=== PATIENT | female | born 2000 | race African-American/Black ===

== ENCOUNTER 2022-11-07 14:51 | Observation (INO) | payer OTHER, SELFPAY ==
[2022-11-07 15:19] VITALS: BMI 30.9
--- NOTE | 2022-11-07 15:21 | OBADM ---
This patient, Jake Carpio, admitted to the OB room OB Post 116 for observation. Patient/family oriented to hospital policies and general routines including ID bracelet, bed and alarms, visiting hours, pain management, procedures, bathroom and other care routines, personal items, smoking policy, room service/diet, and visiting hours. Patient/Family are encouraged to report perceived risks to care and to ask questions if they do not understand what they are told or what they should do.
[2022-11-07 15:30] VITALS: BP 122/71; PULSE 90
[2022-11-07 15:39] LABS: Appearance Urine Clear (Clear); Bilirubin Urine Negative (Negative); Blood Urine Negative (Negative); Color Urine Yellow (Yellow); Glucose Urine UA Negative (Negative); Ketones Urine Negative (Negative); Leukocyte Esterase Ur Negative LEU/UL (Negative); Nitrate Urine Negative (Negative); Protein Urine Negative (Negative); Specific Grav Ur 1.011 (1.001-1.035); Urobilinogen Urine 0.2 mg/dL (<2.0)
[2022-11-07 15:41] LABS: Add Urine Microscopic? NO
--- NOTE | 2022-11-22 14:42 | P.PNOB_ITS ---
OB - Triage/Final Diagnosis Visit Information Comments/Additional reasons for admission: I have assessed the risk for this patient, Jake Carpio, and determined that she would benefit from observation care. Evaluation Laboratory results: Laboratory Tests 11/07/22 15:28 Urine Color Yellow Urine Appearance Clear Urine pH 7.0 Ur Specific [place] 1.011 Urine Protein Negative Urine Glucose (UA) Negative Urine Ketones Negative Ur Blood (Man) Negative Urine Nitrate Negative Urine Bilirubin Negative Urine Urobilinogen 0.2 Leukocyte Esterase Rfl Negative Final Diagnosis (1) Abdominal pain: Code(s): R10.9 - Unspecified abdominal pain Status: Acute
== END 2022-11-07 16:10 | disposition home or self-care (01) ==
PROVIDERS: Admitting Provider Obstetrics & Gynecology; Visit Provider Obstetrics & Gynecology
DX: O26.893 Other specified pregnancy related conditions, third trimester (principal); R10.9 Unspecified abdominal pain; Z3A.29 29 weeks gestation of pregnancy
CPT/HCPCS: 81003; G0378; G0379

== ENCOUNTER 2022-11-10 04:03 | Observation (INO) | payer OTHER, SELFPAY ==
[2022-11-10 04:19] VITALS: BP 115/77; PULSE 92; RESP 16; TEMP 36.3; BMI 31.8
--- NOTE | 2022-11-10 04:20 | OBADM ---
This patient, Jake Carpio, admitted to the OB room OB Post 113 for observation. Patient/family oriented to hospital policies and general routines including ID bracelet, bed and alarms, visiting hours, pain management, procedures, bathroom and other care routines, personal items, smoking policy, room service/diet, and visiting hours. Patient/Family are encouraged to report perceived risks to care and to ask questions if they do not understand what they are told or what they should do.
--- NOTE | 2022-11-10 05:21 | PC.NURSE ---
Dr. Plummer notified of , 30 weeks arriving to unit with complaints of DFM. Reactive NST noted, PT marking movement with marker, vitals WNL, PT having rare contractions with uterine irritability, PT states she does not feel contractions, no significant history per PT. Discharge orders received.
--- NOTE | 2022-11-22 14:47 | PM.OBTRLD ---
OB - Triage/Final Diagnosis Visit Information Comments/Additional reasons for admission: I have assessed the risk for this patient, Jake Carpio, and determined that she would benefit from observation care. Final Diagnosis (1) Decreased movement: Code(s): O36.8190 - Decreased movements, unspecified trimester, not applicable or unspecified Status: Acute
== END 2022-11-10 05:36 | disposition home or self-care (01) ==
PROVIDERS: Admitting Provider Obstetrics & Gynecology; Visit Provider Obstetrics & Gynecology
DX: O36.8130 Decreased fetal movements, third trimester, not applicable or unspecified (principal); Z3A.30 30 weeks gestation of pregnancy
CPT/HCPCS: 59025; G0378; G0379

== ENCOUNTER 2022-12-17 01:36 | Observation (INO) | payer OTHER, SELFPAY ==
[2022-12-17 01:46] VITALS: BP 122/72; PULSE 108
[2022-12-17 02:00] VITALS: BP 117/75; PULSE 110
[2022-12-17 02:15] VITALS: BP 108/84; PULSE 105
[2022-12-17 02:49] VITALS: BMI 33.2
[2022-12-17] MEDS: ONDANSETRON HCL ODT 4 MG TABLET PO (03:05)
--- NOTE | 2022-12-19 10:59 | PM.OBTRLD ---
OB - Triage/Final Diagnosis Visit Information Reason for evaluation: threatened labor Comments/Additional reasons for admission: I have assessed the risk for this patient, Jake Carpio, and determined that she would benefit from observation care.
== END 2022-12-17 03:12 | disposition home or self-care (01) ==
PROVIDERS: Admitting Provider Obstetrics & Gynecology; Visit Provider Obstetrics & Gynecology
DX: O47.03 False labor before 37 completed weeks of gestation, third trimester (principal); Z3A.35 35 weeks gestation of pregnancy
CPT/HCPCS: A9270; G0378; G0379

== ENCOUNTER 2023-01-08 15:20 | Observation (INO) | payer OTHER, SELFPAY ==
[2023-01-08 16:00] VITALS: BMI 34.0
--- NOTE | 2023-01-08 17:09 | LDADM ---
This patient, Jake Carpio, was admitted to Labor/Delivery/Recovery 104 on 01/08/23 at 15:20. Plans for labor, pain management and were discussed with patient. Patient/family oriented to hospital policies and general routines including ID bracelet, bed and alarms, visiting hours, pain management, procedures, bathroom and other care routines, personal items, smoking policy, room service/diet and guest tray routines, infant security routines, and visiting hours. Patient/Family are encouraged to report perceived risks to care and to ask questions if they do not understand what they are told or what they should do. See OBIX for further documentation.
--- NOTE | 2023-01-08 17:14 | PC.NURSE ---
Patient came in complaining of 7/10 intermittent back pain. Patient's cervix found to be closed but patient was fred regularly. Contractions palpated mild. Gave patient water to PO hydrate. Contractions spaced out and patient states she no longer feels any back pain or contractions. Patient's cervix still closed upon reassessment. Called Dr. Plummer at [phone] and updated on patient's status. Verbal orders received for discharge. Patient agrees with plan of care and has no questions at this time.
--- NOTE | 2023-02-01 02:16 | PM.OBTRLD ---
OB - Triage/Final Diagnosis Visit Information Comments/Additional reasons for admission: I have assessed the risk for this patient, Jake Carpio, and determined that she would benefit from observation care. Final Diagnosis (1) False labor: Code(s): O47.9 - False labor, unspecified Status: Acute
== END 2023-01-08 17:24 | disposition home or self-care (01) ==
PROVIDERS: Admitting Provider Obstetrics & Gynecology; Visit Provider Obstetrics & Gynecology
DX: O47.1 False labor at or after 37 completed weeks of gestation (principal); Z3A.38 38 weeks gestation of pregnancy
CPT/HCPCS: G0378; G0379

== ENCOUNTER 2023-01-13 12:31 | Observation (INO) | payer OTHER, SELFPAY ==
[2023-01-13 13:46] VITALS: BP 124/64; PULSE 99
--- NOTE | 2023-02-01 02:20 | PM.OBTRLD ---
OB - Triage/Final Diagnosis Visit Information Comments/Additional reasons for admission: I have assessed the risk for this patient, Jake Carpio, and determined that she would benefit from observation care. Final Diagnosis (1) Cramping affecting , antepartum: Code(s): O26.899 - Other specified related conditions, unspecified trimester; R10.9 - Unspecified abdominal pain Status: Acute
== END 2023-01-13 14:15 | disposition home or self-care (01) ==
PROVIDERS: Admitting Provider Obstetrics & Gynecology; Visit Provider Obstetrics & Gynecology
DX: O26.893 Other specified pregnancy related conditions, third trimester (principal); R10.9 Unspecified abdominal pain; Z3A.39 39 weeks gestation of pregnancy
CPT/HCPCS: G0378; G0379

== ENCOUNTER 2023-01-24 15:30 | Inpatient (IN) | payer OTHER, SELFPAY ==
[2023-01-24] VITALS (16 sets, daily range): BP systolic 106–132; BP diastolic 42–86; PULSE 65–98; TEMP 36.3–36.6; O2SAT 100; BMI 34.4
--- NOTE | 2023-01-24 16:32 | PM.IMHP ---
H&P: HPI History of Present Illness Date/Time: 01/24/23 16:32 Chief Complaint: Postdates Narrative: A 22-year-old female admitted for induction of labor secondary to postdates . has been uncomplicated to this point. Her cervix is less than favorable and she will thus undergo Cervidil induction followed by Pitocin augmentation in the morning. PMFSH Family History Family History Sibling Autism Albino Social History Social History Substance use: never Spiritual care concerns: No Meds Home Medications and Allergies Home Medications Medication Instructions Recorded Confirmed Type No Home Medications 01/08/23 01/08/23 History Allergies Allergy/AdvReac Type Severity Reaction Status Date / Time No Known Allergies Allergy Verified 01/08/23 17:11 Vital Signs Vital Signs - 24 hr 01/24/23 15:45 01/24/23 15:50 01/24/23 15:52 Pulse Oximetry 100 100 100 01/24/23 15:57 Pulse Oximetry 100 Exam Const: General: cooperative, healthy appearing and comfortable Nutritional Appearance: average body habitus Orientation/consciousness: oriented to person, oriented to place and oriented to time HENMT: Head: normal to inspection Resp: Effort & Inspection: normal respiratory effort Cardio: Rate: regular rate Rhythm: regular rhythm Heart sounds: S1 normal heart sound present and S2 normal heart sound present GI: Inspection: normal to inspection (Gravid soft uterus) Auscultation: normal bowel sounds : External Female Exam: normal external appearance Speculum Exam - Vagina: normal appearance of the vagina Speculum Exam - Cervix: normal appearance of the cervix (1cm and thick. heart tones reassuring) Assessment and Plan Assessment and plan (1) Term : Code(s): Z34.90 - Encounter for supervision of normal , unspecified, unspecified trimester Status: Acute Plan Medical induction of labor. Spontaneous vaginal delivery is expected. She has an epidural candidate
[2023-01-24 16:50] LABS: Basophils Percent Auto 0.3 % (0.2-1.2); Eosinophils Percent Auto 0.4 % (0-4.4); Hematocrit 28.4 % (37.0-47.0); Hemoglobin 8.3 g/dL (12.0-15.0); Immature Granulocyte Absolute 0.07 K/mm3 (0.00-0.031); Lymphocytes Percent Auto 24.5 % (18.3-44.2); Mean Corpuscular HGB Conc 29.2 g/dl (32-36); Mean Corpuscular Hemoglobin 20.5 pg (26-34); Mean Corpuscular Volume 70.3 fl (80-100); Mean Platelet Volume 10.8 fl (7.4-10.4); Monocytes Absolute Auto 0.9 K/mm3 (0.1-0.6); Monocytes Percent Auto 13.1 % (2.6-8.5); Neutrophils Absolute Auto 4.2 K/mm3 (1.3-6.7); Neutrophils Percent Auto 60.7 % (45.5-73.1); Platelet Count Result 306 k/mm3 (150-375); Red Blood Count 4.04 M/mm3 (4.2-5.4); Red Cell Distribution Width 17.7 % (11.5-14.5); White Blood Count 6.9 K/mm3 (4.5-10.0)
[2023-01-24] MEDS: DINOPROSTONE 10 MG VAG INSERT VAGINAL (17:00)
--- NOTE | 2023-01-24 17:01 | LDADM ---
This patient, Jake Carpio, was admitted to Labor/Delivery/Recovery 108 on 01/24/23 at 15:30. Plans for labor, pain management and were discussed with patient. Patient/family oriented to hospital policies and general routines including ID bracelet, bed and alarms, visiting hours, pain management, procedures, bathroom and other care routines, personal items, smoking policy, room service/diet and guest tray routines, security routines, and visiting hours. Patient/Family are encouraged to report perceived risks to care and to ask questions if they do not understand what they are told or what they should do. See OBIX for further documentation.
[2023-01-24 17:39] LABS: Schistocytes None Seen (NORMAL)
[2023-01-24 17:41] LABS: Hypochromasia 1+ (NORMAL); Platelet Estimate Adequate (Adequate)
[2023-01-24 17:42] LABS: Anisocytosis 2+ (NORMAL)
[2023-01-24 17:45] LABS: HIV 1/2 Ab P24 Ag Result Negative (Negative)
--- NOTE | 2023-01-24 18:32 | WPDANESEPPF ---
Anes - Initial Pre Proc Eval Procedure: Labor Pain Date/Time: 01/24/23 18:32 Surgeon: Cesar Grubbs MD Pre Op Diagnosis: Labor Pain Pre Op Diagnosis: iol Patient Data Age: 22 Gender: F Height: 1.52 m Weight: 80 kg Last Vital Signs Pulse 97 01/24/23 18:30 BP 107/69 01/24/23 18:30 Pulse Ox 100 01/24/23 15:57 O2 Del Method Room Air 01/24/23 17:01 Allergies Allergy/AdvReac Type Severity Reaction Status Date / Time No Known Allergies Allergy Verified 01/08/23 17:11 Home Medications Medication Instructions Recorded Confirmed Type fluticasone propionate 50 1 spray intranasal DAILY 01/24/23 01/24/23 History mcg/actuation nasal spray,suspension Laboratory Tests 01/24/23 16:45 WBC 6.9 K/mm3 (4.5-10.0) RBC 4.04 L M/mm3 (4.2-5.4) Hgb 8.3 L g/dL (12.0-15.0) Hct 28.4 L % (37.0-47.0) MCV 70.3 L fl (80-100) MCH 20.5 L pg (26-34) MCHC 29.2 L g/dl (32-36) RDW 17.7 H % (11.5-14.5) Plt Count 306 k/mm3 (150-375) MPV 10.8 H fl (7.4-10.4) Immature Gran % (Auto) 1.0 H % (0-0.5) Neut % (Auto) 60.7 % (45.5-73.1) Lymph % (Auto) 24.5 % (18.3-44.2) [place] % (Auto) 13.1 H % (2.6-8.5) Eos % (Auto) 0.4 % (0-4.4) Baso % (Auto) 0.3 % (0.2-1.2) Lymph # (Auto) 1.70 K/mm3 (0.9-3.2) [place] # (Auto) 0.9 H K/mm3 (0.1-0.6) Eos # (Auto) 0.0 K/mm3 (0-0.3) Baso # (Auto) 0.0 K/mm3 (0.0-0.1) Abs Immat Gran (auto) 0.07 H K/mm3 (0.00-0.031) Absolute Neuts (auto) 4.2 K/mm3 (1.3-6.7) Absolute Nucleated RBC 0.0 K/mm3 (0.0-0.012) Nucleated RBC % 0.0 % (0.0-0.2) Platelet Estimate Adequate (Adequate) Hypochromasia 1+ (NORMAL) Anisocytosis 2+ (NORMAL) Schistocytes None seen (NORMAL) RPR Pending HIV 1&2 Ab/P24 Ag 4thGn Negative (Negative) Patient hx anesthesia problems: none Family hx anesthesia problems: none Results Review: All pre-operative results and documents have been reviewed as part of the pre-operative evaluation. [facility] Family History Family History Sibling Autism Albino Social History Social History Second hand tobacco smoke exposure: Yes Substance use: never Lack of Transportation: No Lack of Food: Never True Current Housing: I Have Housing Concerned About Future Housing: No Difficulty Paying Gas/Electric Bills: No Difficulty Paying for Meds: No Currently Unemployed: YES Education: High School Diploma/GED Difficulty w/ Childcare or Family Care: No Spiritual care concerns: No Anes - Eval Final PreProcedure Day of Procedure 01/24/23 18:32 Patient weight: overweight ASA classification: II Anesthetic plan: proceed Anesthesia type and monitoring: regional epidural and standard monitoring Results Review: All pre-operative results and documents have been reviewed as part of the pre-operative evaluation. Informed Consent: The patient's anesthetic plan and its attendant risks and benefits were discussed with the patient/family/POA. Questions were solicited and answers provided to the satisfaction of the patient/family/POA.
[2023-01-24] MEDS: ACETAMINOPHEN 500 MG TABLET 1000 MG PO (20:59)
[2023-01-25] VITALS (133 sets, daily range): BP systolic 85–141; BP diastolic 56–121; PULSE 68–107; TEMP 36.1–36.8; O2SAT 98–100
[2023-01-25] MEDS: ZOLPIDEM TARTRATE (*CRX) 5 MG TABLET PO (02:01)
[2023-01-25] MEDS: DINOPROSTONE 10 MG VAG INSERT VAGINAL (05:37)
--- NOTE | 2023-01-25 06:48 | PM.OBPNLAB ---
Pain Control Date/time seen: 01/25/23 06:48 Pain control: tolerating well Comments: poor progress. replaced cervadil
[2023-01-25] MEDS: ACETAMINOPHEN 500 MG TABLET 1000 MG PO (09:50)
[2023-01-25] MEDS: fentaNYL CITRATE INJ (*CRX) 100 MCG/2 ML VIAL IV PUSH (11:21)
[2023-01-25] MEDS: LACTATED RINGERS 1,000 ML 125 ML IV CONT ×3 (11:22→20:17)
[2023-01-25] MEDS: AMPICILLIN 2 GM/NS 100 ML 2 GM/100 ML BAG IVPB (11:23)
--- NOTE | 2023-01-25 13:01 | PM.OBPNLAB ---
Pain Control Date/time seen: 01/25/23 13:01 Pain control: tolerating well Pelvic Exam Dilation (cm): 1 Effacement (%): 50 station: -2 Amniotic membrane status: Leaking Comments: start pit Contractions Monitor mode: External
[2023-01-25] MEDS: OXYTOCIN 30 UNITS/NS 500 ML 30 UNITS/500 ML BAG 6 UNITS IV CONT (13:15)
[2023-01-25] MEDS: AMPICILLIN 1 GM/NS 50 ML 1 GM/50 ML BAG IVPB ×2 (15:27→20:17)
[2023-01-25 16:23] LABS: Rapid Plasma Reagin Non-Reactive (NonReactive)
--- NOTE | 2023-01-25 18:32 | PM.OBPNLAB ---
Pain Control Date/time seen: 01/25/23 18:32 Pain control: tolerating well and epidural Pelvic Exam Dilation (cm): 1 Effacement (%): 50 station: -2 Amniotic membrane status: Leaking Contractions Monitor mode: External
[2023-01-25] MEDS: ONDANSETRON INJ 4 MG/2 ML VIAL IV PUSH (21:40)
[2023-01-26] VITALS (203 sets, daily range): BP systolic 100–186; BP diastolic 44–168; PULSE 68–184; RESP 16–20; TEMP 36.1–37.1; O2SAT 86–100
[2023-01-26] MEDS: AMPICILLIN 1 GM/NS 50 ML 1 GM/50 ML BAG IVPB ×4 (00:04→17:05)
--- NOTE | 2023-01-26 06:28 | PM.OBPNLAB ---
Pain Control Date/time seen: 01/26/23 06:28 Pain control: tolerating well and epidural Pelvic Exam Dilation (cm): 5 Effacement (%): 80 station: -2 Amniotic membrane status: Leaking Contractions Monitor mode: External
[2023-01-26] MEDS: OXYTOCIN 30 UNITS/NS 500 ML 30 UNITS/500 ML BAG 12 UNITS IV CONT (12:05)
--- NOTE | 2023-01-26 12:29 | PM.OBPNLAB ---
Pain Control Date/time seen: 01/26/23 12:29 Pelvic Exam Dilation (cm): 6 Effacement (%): 80 station: -2 Amniotic membrane status: Leaking Contractions Monitor mode: External
[2023-01-26] MEDS: LACTATED RINGERS 1,000 ML 125 ML IV CONT ×2 (15:08→18:48)
--- NOTE | 2023-01-26 17:12 | PM.OBPNLAB ---
Pain Control Date/time seen: 01/26/23 17:12 Comments: I have assumed care of this patient for Dr. Essence Grubbs. I have communicated with him and with the patient's nurse, and have evaluated the medical record. Briefly, she is a 22 y/o G1 at 41 weeks who began induction of labor on 01/24/23. Cervidil x 2, then AROM/oxytocin. Cervix has been 6 cm dilated since 0715 today. No change despite oxytocin administration over those 10 hours. She is receiving ampicillin for GBS colonization. Intermittently feeling pain with epidural; just received another bolus. Ultrasound EFW 3 weeks ago showed 7#8oz, giving her an EFW today of 9.5 lbs. She says she is 5 feet tall. I met the patient and reviewed her plan of care with her partner in the room. They asked me to leave the room while they discussed the plan. They are also waiting for her mom to arrive. Pelvic Exam Dilation (cm): 6 Effacement (%): 80 station: -2 Amniotic membrane status: Leaking Contractions Monitor mode: Internal Contraction frequency: 2 Contraction pattern: Regular Status status: Category l Assessment and Plan Pitocin rate (mU/min): 8 Comments: A: Active phase arrest of labor. P: Offered primary delivery. She understands risks of surgery to include risks of anesthesia, risks of pain, infection, bleeding, blood products, thromboembolic phenomena and damage to adjacent structures such as bowel, bladder, ureters, blood vessels and nerves. She and her partner are considering their options.
--- NOTE | 2023-01-26 18:39 | PM.OBPNLAB ---
Pain Control Date/time seen: 01/26/23 18:39 Cervix /-2. Once again, offered primary . Reviewed risks, benefits and alternatives in detail. She agrees and elects to proceed with surgery. Pelvic Exam Dilation (cm): 6 Effacement (%): 80 station: -2 Amniotic membrane status: Leaking Contractions Monitor mode: Internal Contraction frequency: 2 Contraction pattern: Regular Status status: Category l
[2023-01-26] MEDS: AZITHROMYCIN 500 MG/NS 250 ML 500 MG/250 ML BAG 250 MG IVPB (19:00)
[2023-01-26] MEDS: ceFAZolin 2 GM/D5W 50 ML 2 GM/50 ML BAG IVPB (19:17)
--- NOTE | 2023-01-26 19:48 | PM.OBPRVD ---
OB - Delivery Note Procedure Delivery date: 01/26/23 Procedure: Procedures Operation Date: 01/26/23 18:40 <No data on this case meets the specified criteria> Primary low transverse delivery Intrapartal Events: Arrest of Dilation Induction method: Per Cervidil Protocol Delivery augmentation: Rupture of Membranes and Pitocin Delivery monitor: External FHT, External Uterine and Internal Uterine Route of delivery: Specimen: Yes (cord blood) Quantitative Blood Loss (ml): 530 Anesthesia type: Spinal Disposition: PACU Complications: None Narrative: The patient was taken to the operating room where she was prepared and draped in the usual sterile fashion in dorsal supine position with a leftward tilt. She received IV cefazolin and azithromycin preoperatively. Spinal anesthesia was found to be adequate. A Pfannenstiel skin incision was made and carried through to the underlying layer of the fascia. The fascia was incised in the midline and the incision was extended laterally. The fascia was dissected free of the underlying rectus muscles. The rectus muscles were in the midline. The peritoneum was identified, tented up and entered sharply. The peritoneal incision was extended superiorly and inferiorly with good visualization of the bladder. The bladder blade was placed. The vesicouterine peritoneum was identified, tented up and entered sharply. The incision was extended laterally and the bladder flap was developed. The bladder blade was replaced. The uterus was then incised sharply in a transverse fashion along the lower uterine segment. The incision was extended laterally. The 's head was delivered atraumatically to the sterile field, followed by the body. The nose and mouth were bulb suctioned. After a delay, the cord was clamped and cut. The infant was handed off the field. Cord blood was collected. The placenta was removed manually and was passed off the field. The uterus was exteriorized and cleared of all clots and debris. The uterine incision was reapproximated using 0 Monocryl in a running, locked fashion. A second, imbricating layer of the same suture was run. Excellent hemostasis resulted as did excellent reapproximation of the normal anatomy. The uterus was returned the abdomen. The pelvis was irrigated copiously with warmed normal saline. Rigorous hemostasis was assured. The fascial layer was reapproximated using 0 Vicryl in a running fashion. The skin was closed with a running, subcuticular stitch of 4 0 Vicryl. Dermaflex was applied externally. Sponge, lap, needle and instrument counts were correct. The patient was taken to the recovery room in stable condition. The infant went to the nursery in stable condition. I was present and scrubbed the entire procedure. [facility] Date of : 01/26/23 Time of : 19:23 Weeks of gestation at delivery: 41 Infant gender: Female Weight (pounds): 10 Weight (ounces): 12 presentation: vertex Placenta delivery description: Manual Removal and Normal Configuration Cord Vessel Description: 3 Vessels and Delayed Cord Clamping score one minute: 8 score five minutes: 9
--- NOTE | 2023-01-26 19:51 | PM.OBDSVD ---
DS: Admitting Diagnosis Discharge Date 01/29/2023 <Cesar Grubbs MD - Last Filed: 01/29/23 07:12> Admitting Diagnosis IUP at 41 weeks <Obed Plummer MD - Last Filed: 02/01/23 02:27> DS: Discharge Diagnosis Discharge Diagnosis (1) delivery delivered: Code(s): O82 - Encounter for delivery without indication <Obed Plummer MD - Last Filed: 02/01/23 02:27> Status: Acute <Obed Plummer MD - Last Filed: 02/01/23 02:27> OB - DS: Summary OB Procedures : None <Obed Plummer MD - Last Filed: 02/01/23 02:27> OB Procedures Intrapartum: <Obed Plummer MD - Last Filed: 02/01/23 02:27> OB Procedures: : None <Obed Plummer MD - Last Filed: 02/01/23 02:27> Peripartum Data Procedures: Procedures Operation Date: 01/26/23 18:40 <No data on this case meets the specified criteria> <Obed Plummer MD - Last Filed: 02/01/23 02:27> Time Spent with Patient Time attestation: Total time spent providing and/or coordinating discharge services: <Obed Plummer MD - Last Filed: 02/01/23 02:27> DS: Data Data Completed and Pending Pending studies at discharge: Pending at discharge 01/25/23 19:50 Surgical [PTH] Routine <Obed Plummer MD - Last Filed: 02/01/23 02:27> Discharge Plan Discharge Attending physician on discharge: Cesar Norwood <Obed Plummer MD - Last Filed: 02/01/23 02:27> Cesar Norwood <Cesar Grubbs MD - Last Filed: 01/29/23 07:12> Consulting providers: Kelly Daniel; Kendal Mulligan <Obed Plummer MD - Last Filed: 02/01/23 02:27> Discharging Clinician: Cesar Norwood <Obed Plummer MD - Last Filed: 02/01/23 02:27> Cesar Norwood <Cesar Grubbs MD - Last Filed: 01/29/23 07:12> Patient Disposition: Home, Self-Care <Obed Plummer MD - Last Filed: 02/01/23 02:27> Activity: may shower, may drive after 2 weeks and no preference <Obed Plummer MD - Last Filed: 02/01/23 02:27> may shower, may drive after 2 weeks and no preference <Cesar Grubbs MD - Last Filed: 01/29/23 07:12> Diet: regular <Obed Plummer MD - Last Filed: 02/01/23 02:27> regular <Cesar Grubbs MD - Last Filed: 01/29/23 07:12> Wound Care Instructions: incision open to air <Obed Plummre MD - Last Filed: 02/01/23 02:27> incision open to air <Cesar Grubbs MD - Last Filed: 01/29/23 07:12> Discharge Instructions: Call or return if temperature above 100.4? F, increased abdominal pain, increased vaginal bleeding or any new problems. Education: Mom and Baby Guide Given to: Mother Follow-Up: Call your delivering provider's office for an appointment to be seen in: 4 Weeks BREAST CARE: * Wear a snug supportive bra. * For engorgement discomfort: Bottle Feeding: * May apply ice packs ABDOMINAL INCISION: (if applicable) * Allow incision to air dry * Do NOT use lotions for powders on your incision * When showering, allow soap and water to run over the incision, but do not wash incision EPISIOTOMY/PERINEAL CARE: * Until bleeding stops, use your chucho bottle after urinating * Change your pad frequently throughout the day * No tub baths until seen by your physician - You may shower ACTIVITY: * Rest as much as possible. * Do not exercise or lift anything heavier than your baby (such as laundry or other children.) * Avoid stairs or driving as much as possible. * Do not put anything into the vagina. No douching, tampons, or sexual activity until seen by physician. NOTIFY PHYSICIAN IF YOU HAVE ANY QUESTIONS OR IF ANY OF THE FOLLOWING SYMPTOMS OCCUR: * If your incision becomes red, swollen, or more painful than what you have experienced in the hospital. * If your vaginal b
[2023-01-26] MEDS: LORATADINE 10 MG TABLET PO (21:14)
--- NOTE | 2023-01-26 22:15 | PC.NURSE ---
Patient transferred to post room #282 via (Stretcher). Support person present. Oriented to unit, room, information board, rooming in, admission packet and security measures. Patient verbalizes understanding.
[2023-01-26] MEDS: OXYTOCIN 30 UNITS/NS 500 ML 30 UNITS/500 ML BAG 125 UNITS IV CONT (22:56)
[2023-01-27 05:25] VITALS: BP 127/72; PULSE 90; RESP 16; TEMP 36.9; O2SAT 98
[2023-01-27 06:01] LABS: Basophils Percent Auto 0.2 % (0.2-1.2); Eosinophils Percent Auto 0.1 % (0-4.4); Immature Granulocyte Absolute 0.07 K/mm3 (0.00-0.031); Immature Granulocyte Percent A 0.6 % (0-0.5); Lymphocytes Absolute Auto 1.43 K/mm3 (0.9-3.2); Lymphocytes Percent Auto 11.7 % (18.3-44.2); Mean Corpuscular HGB Conc 30.9 g/dl (32-36); Mean Corpuscular Hemoglobin 21.2 pg (26-34); Mean Corpuscular Volume 68.7 fl (80-100); Mean Platelet Volume 10.5 fl (7.4-10.4); Monocytes Absolute Auto 1.3 K/mm3 (0.1-0.6); Monocytes Percent Auto 10.9 % (2.6-8.5); Neutrophils Absolute Auto 9.4 K/mm3 (1.3-6.7); Neutrophils Percent Auto 76.5 % (45.5-73.1); Platelet Count Result 223 k/mm3 (150-375); Red Blood Count 2.97 M/mm3 (4.2-5.4); Red Cell Distribution Width 17.8 % (11.5-14.5); White Blood Count 12.3 K/mm3 (4.5-10.0)
[2023-01-27 06:37] LABS: Hematocrit 20.4 % (37.0-47.0)
[2023-01-27 06:38] LABS: Hemoglobin 6.3 g/dL (12.0-15.0)
[2023-01-27 06:39] LABS: Anisocytosis 1+ (NORMAL); Hypochromasia 2+ (NORMAL); Microcytosis 1+ (NORMAL); Platelet Estimate Adequate (Adequate); Poikilocytosis 1+ (NORMAL); Schistocytes None Seen (NORMAL)
--- NOTE | 2023-01-27 06:45 | PC.NURSE ---
PT introductions made and plan of care discussed per post op c section, pain management, bottle feeding, daily care activities. PT and FOB both recipients of such instructions and no barriers to learning identified at this time. PT received such instructions per one to one discussion, mom baby care guide and demonstrations this shift. PT verbalized understanding of such care.
[2023-01-27 07:00] VITALS: BP 120/72; PULSE 88; RESP 16; TEMP 36.6; O2SAT 98; O2SAT 99
--- NOTE | 2023-01-27 08:48 | P.PNOB_ITS ---
OB - PN: Subj Subjective Date/time seen: 01/27/23 08:48 Narrative: Pain OK. Tolerating diet. She says she refused the postop oxytocin, and I was not made aware of this last night. She says she thought it would increase her pain and she felt like she had had enough oxytocin. I told her this was a terrible idea, in light of her anemia. Fortunately, her bleeding has tapered. She has no shortness of breath or chest pain. OB - PN: Obj Data Labs 01/27/23 05:49 Labs: Laboratory Results - last 24 hr 01/27/23 05:49 WBC 12.3 H RBC 2.97 L Hgb 6.3 L* Hct 20.4 L* MCV 68.7 L MCH 21.2 L MCHC 30.9 L RDW 17.8 H Plt Count 223 MPV 10.5 H Immature Gran % (Auto) 0.6 H Neut % (Auto) 76.5 H Lymph % (Auto) 11.7 L [place] % (Auto) 10.9 H Eos % (Auto) 0.1 Baso % (Auto) 0.2 Lymph # (Auto) 1.43 [place] # (Auto) 1.3 H Eos # (Auto) 0.0 Baso # (Auto) 0.0 Abs Immat Gran (auto) 0.07 H Absolute Neuts (auto) 9.4 H Absolute Nucleated RBC 0.0 Nucleated RBC % 0.0 Platelet Estimate Adequate Hypochromasia 2+ Poikilocytosis 1+ Anisocytosis 1+ Microcytosis 1+ Schistocytes None seen OB - PN A/P Plan day: 1 Comments: A: POD#1, doing well. P: Routine care. Exam Narrative: AVSS I/O OK ABD soft, nontender, fundus firm. Incision c/d/i. EXT nontender
[2023-01-27] MEDS: FLUTICASONE PROPIONATE 0.05% NA SPR 16 GM BTL (*BKC) 1 SPRAY NASAL (09:51)
[2023-01-27] MEDS: DOCUSATE SODIUM 100 MG CAPSULE PO ×2 (09:54→16:05)
[2023-01-27] MEDS: SIMETHICONE 80 MG TAB.CHEW PO ×3 (09:54→16:06)
[2023-01-27] MEDS: MULTIVIT/MIN/PREN/FOL AC/IRON TABLET 1 TAB PO (09:55)
[2023-01-27] MEDS: POLYSACCHARIDE IRON COMPLEX 150 MG CAPSULE PO ×2 (09:55→16:07)
[2023-01-27] MEDS: IBUPROFEN 600 MG TABLET PO ×3 (09:56→22:33)
[2023-01-27] MEDS: HYDROcodone/acetaminophen (*CRX) 5-325 MG TABLET 1 TAB PO ×5 (09:58→22:34)
--- NOTE | 2023-01-27 09:59 | WPDANLDNPN2 ---
Anes-Prog Note L&D-Neuraxial Date/Time: 01/27/23 09:59 Neuraxial medications: intrathecal PF morphine Opiod-related complaints: pruritis moderate, treatment effective Patient feedback: Patient satisfied with post-operative pain management.
--- NOTE | 2023-01-27 10:00 | WPDANLDPN2 ---
Anes-Prog Note L&D Date/Time: 01/27/23 10:00 Comfortable throughout: section Neuraxial method: epidural Epidural/Spinal procedure site: clean & non-tender Neuro status: Neuro function grossly intact. Cardiovascular status: normal Respiratory status: normal Airway patency: baseline Mental status: baseline Post-Op hydration status: normal Vital Signs: Last Vital Signs Temp 98.4 F 01/27/23 05:25 Pulse 90 01/27/23 05:25 Resp 16 01/27/23 05:25 BP 127/72 01/27/23 05:25 Pulse Ox 98 01/27/23 05:25 O2 Del Method Room Air 01/26/23 21:55 Pain score (VAS): 3 I/O: Intake & Output 01/26/23 01/27/23 01/27/23 23:59 07:59 15:59 Intake Total 2350 1200 Output Total 1570 1550 Balance 780 -350 Post-procedural complaints: pruritis moderate, treatment effective Patient feedback: Patient satisfied with anesthetic care.
[2023-01-27 13:00] VITALS: BP 124/70; PULSE 80; RESP 18; TEMP 37; O2SAT 99
[2023-01-27 17:00] VITALS: BP 116/69; PULSE 94; RESP 18; TEMP 36.6; O2SAT 100
[2023-01-27 21:00] VITALS: BP 126/75; PULSE 97; RESP 16; TEMP 36.6; O2SAT 100
[2023-01-28] MEDS: HYDROcodone/acetaminophen (*CRX) 5-325 MG TABLET 1 TAB PO ×7 (01:39→21:23)
[2023-01-28] MEDS: BISACODYL 10 MG SUPPOSITORY RECTAL (02:52)
[2023-01-28] MEDS: IBUPROFEN 600 MG TABLET PO ×3 (04:21→18:06)
[2023-01-28] MEDS: POLYSACCHARIDE IRON COMPLEX 150 MG CAPSULE PO ×2 (08:05→18:06)
[2023-01-28] MEDS: FLUTICASONE PROPIONATE 0.05% NA SPR 16 GM BTL (*BKC) 1 SPRAY NASAL (08:05)
[2023-01-28] MEDS: MULTIVIT/MIN/PREN/FOL AC/IRON TABLET 1 TAB PO (08:05)
[2023-01-28] MEDS: DOCUSATE SODIUM 100 MG CAPSULE PO ×2 (08:05→18:06)
[2023-01-28] MEDS: SIMETHICONE 80 MG TAB.CHEW PO ×4 (08:05→18:06)
[2023-01-28 09:00] VITALS: BP 133/74; PULSE 106; RESP 18; TEMP 36.9; O2SAT 100
--- NOTE | 2023-01-28 09:34 | PM.OBPNVD ---
OB - PN: Subj Subjective Date/time seen: 01/28/23 09:34 Narrative: Pain OK. Tolerating diet. OB - PN: Obj Data Labs 01/27/23 05:49 OB - PN A/P Plan Comments: A: POD#2, doing well. Anemia is not symptomatic. Has started iron supplementation. P: Routine care. Time Spent With Patient Time with patient: less than 15 minutes Exam Narrative: AVSS I/O OK ABD soft, nontender, fundus firm. Incision c/d/i. EXT nontender
[2023-01-28 14:00] VITALS: BP 128/72; PULSE 80; RESP 18; TEMP 36.9; O2SAT 100
[2023-01-28 20:04] VITALS: BP 124/82; PULSE 96; RESP 16; TEMP 36.6; O2SAT 100
[2023-01-29] MEDS: IBUPROFEN 600 MG TABLET PO ×2 (00:35→07:33)
[2023-01-29] MEDS: HYDROcodone/acetaminophen (*CRX) 5-325 MG TABLET 1 TAB PO ×4 (00:35→10:35)
--- NOTE | 2023-01-29 07:09 | PM.OBPNVD ---
OB - PN: Subj Subjective Date/time seen: 01/29/23 07:09 Patient comments: no complaints and pain well controlled baby status: doing well and nursing well OB - PN: Obj Data Labs 01/27/23 05:49 OB - PN A/P Plan day: 3 Plan: routine care, discharge home and follow up 6 weeks ( 4 weeks) Time Spent With Patient Time: Total time spent is greater than 50% in coordination of care (as documented) at patient's floor/unit and/or counseling patient: Time with patient: less than 15 minutes Exam Const: General: cooperative, healthy appearing and comfortable Nutritional Appearance: average body habitus Orientation/consciousness: oriented to person, oriented to place and oriented to time HENMT: Head: normal to inspection Resp: Effort & Inspection: normal respiratory effort Cardio: Rate: regular rate Rhythm: regular rhythm Heart sounds: S1 normal heart sound present and S2 normal heart sound present GI: Inspection: normal to inspection ( fundus firm below the umbi) and incision ( clean dry and intact)
[2023-01-29] MEDS: MULTIVIT/MIN/PREN/FOL AC/IRON TABLET 1 TAB PO (07:32)
[2023-01-29] MEDS: POLYSACCHARIDE IRON COMPLEX 150 MG CAPSULE PO (07:32)
[2023-01-29] MEDS: DOCUSATE SODIUM 100 MG CAPSULE PO (07:33)
[2023-01-29] MEDS: FLUTICASONE PROPIONATE 0.05% NA SPR 16 GM BTL (*BKC) 1 SPRAY NASAL (07:37)
[2023-01-29 07:55] VITALS: BP 106/76; PULSE 87; RESP 18; TEMP 37.2; O2SAT 99
--- NOTE | 2023-01-29 09:19 | PC.NURSE ---
Patient viewed the discharge video [facility], The First Two Weeks . Patient was given the opportunity and encouraged to ask questions. Patient verbalized understanding of information shared and has been given the mother/baby guide for home reference.
== END 2023-01-29 11:25 | disposition home or self-care (01) | DRG 540 ==
LOC: ANHLDR 01-26 19:52 → ANHOB2 01-26 22:29
PROVIDERS: Obstetrics & Gynecology; Admitting Provider Obstetrics & Gynecology; Visit Provider Obstetrics & Gynecology
PROC: 10D00Z1 Extraction of Products of Conception, Low, Open Approach (ICD-10-PCS; CPT 59514; principal; 2023-01-26 18:40)
DX: O48.0 Post-term pregnancy (principal); Z37.0 Single live birth; Z3A.41 41 weeks gestation of pregnancy; O62.1 Secondary uterine inertia; L29.9 Pruritus, unspecified; O26.893 Other specified pregnancy related conditions, third trimester; O99.824 Streptococcus B carrier state complicating childbirth
CPT/HCPCS: 36415; 85025; 86592; 86703; 86850; 86900; 86901; A9270; G0432; J0290; J0456; J0690; J2274; J2405; J2590; J2795; J3010; J7120

== ENCOUNTER 2024-07-07 08:53 | Emergency (ER) | payer OTHER, SELFPAY ==
--- NOTE | ~2024-07-07 | XR_ITS ---
EXAMINATION: XR chest 2V DATE: 07/07/2024 10:32 INDICATION: Shortness of breath and cough. TECHNIQUE: Frontal and lateral views of the chest were obtained. COMPARISON: None. FINDINGS: There is no pneumonia, pleural effusion, or pneumothorax. The heart size is normal. IMPRESSION: 1. No acute cardiopulmonary disease. Reviewed, dictated and finalized at location A. [employer]
[2024-07-07 09:20] VITALS: BP 124/76; PULSE 82; RESP 16; TEMP 36.6; O2SAT 100
--- NOTE | 2024-07-07 10:58 | ED_ITS ---
HPI - URI/Sore Throat General Chief Complaint: Upper Respiratory Infection Stated Complaint: cough, runny nose Time Seen by Provider: 07/07/24 09:27 History of Present Illness HPI Narrative: Patient is a 23-year-old female who presents to the ER with complaints of 1 week history of a hard cough. She reports she has developed laryngitis and has recently started experiencing some congestion. Pt reports the cough woke her out of her sleep last night. She denies any recent fevers, shortness of breath, wheezing. Patient denies any medical history pertinent to this ER visit. MD elicited complaint: cough, rhinorrhea and nasal congestion Related Data Home Medications Medication Instructions Recorded Confirmed fluticasone propionate 50 1 spray intranasal DAILY 01/24/23 01/24/23 mcg/actuation nasal spray,suspension Allergies Allergy/AdvReac Type Severity Reaction Status Date / Time No Known Allergies Allergy Verified 01/08/23 17:11 Review of Systems Review of Systems: All systems reviewed & are unremarkable except as noted in HPI and below PMFSH Family History Family History Sibling Autism Albino Social History Social History Second hand tobacco smoke exposure: Yes Substance use: never Lack of Transportation: No Lack of Food: Never True Current Housing: I Have Housing Concerned About Future Housing: No Difficulty Paying Gas/Electric Bills: No Difficulty Paying for Meds: No Currently Unemployed: YES Education: High School Diploma/GED Difficulty w/ Childcare or Family Care: No Spiritual care concerns: No Exam Narrative: GENERAL: Well appearing, well-nourished, non-toxic, in no acute distress. HEAD: Normocephalic, atraumatic. NECK: Supple. No adenopathy, no masses. RESPIRATORY: Airway patent, respirations nonlabored. Clear to auscultation bilaterally, no rales, rhonchi, wheezing. CARDIOVASCULAR: Regular rate and rhythm without murmurs, rubs, or gallops. Peripheral pulses 2+ and equal bilaterally. ABDOMINAL: Soft, nontender, nondistended, no hepatosplenomegaly. Normoactive BS. MUSCULOSKELETAL: Moves all extremities. Strength/ROM intact without gross deformities. SKIN: Warm, dry, normal color. No rashes. NEURO: A&O X3. Speech clear. Cranial nerves II-XII grossly intact. Steady gait. No ataxic movements. PSYCHIATRIC: Appropriate mood and affect. Normal interaction. Course Vital Signs Vital signs: Vital Signs Temperature 36.6 C 07/07/24 09:20 Pulse Rate 82 07/07/24 09:20 Respiratory Rate 16 07/07/24 09:20 Blood Pressure 124/76 07/07/24 09:20 Pulse Oximetry 100 07/07/24 09:20 Temperature 36.6 C 07/07/24 09:20 Pulse Rate 82 07/07/24 09:20 Respiratory Rate 16 07/07/24 09:20 Blood Pressure 124/76 07/07/24 09:20 Pulse Oximetry 100 07/07/24 09:20 MDM - URI/Sore Throat MDM Narrative Medical decision making narrative: Patient is a 23-year-old female who presents to the ER with complaints of 1 week history of a hard cough. She reports she has developed laryngitis and has recently started experiencing some congestion. Pt reports the cough woke her out of her sleep last night. She denies any recent fevers, shortness of breath, wheezing. Patient denies any medical history pertinent to this ER visit. Labs Ordered: COVID/flu/RSV swab Imaging Ordered: Chest x-ray Results: Positive for RSV Diagnosis: RSV infection Patient Education/Shared MDM: Results shared with patient. Advised patient to take [id number] cough medicine, Tylenol and ibuprofen as needed. Also advised to push fluids. Patient verbalized understanding of results and is in agreement prior to discharge home. Differential Diagnosis Differential diagnosis: Likely upper respiratory infection, viral infection, bronchitis, influenza and pharyngitis Lab Data Attestation: I reviewed the patient's lab results. Labs: Lab Results 07/07/24 Range/Units 11:00 Influenza A (RT-PCR) Negative (Negative) Influenza B (RT-PCR) Negative (Negative) RSV (RT-PCR) Positive A (Negative) SARS-CoV-2 RNA (RT-PCR) Negative (Negative) Imaging Data Attestation: I personally reviewed and interpreted this imaging study as follow s: Radiologist's impression: Impressions Chest X-Ray 07/07/24 10:35 IMPRESSION: 1. No acute cardiopulmonary disease. Discharge Plan Discharge Clinical Impression: Upper respiratory infection, Respiratory syncytial virus (RSV) Patient Disposition: Home, Self-Care Condition: Stable Instructions: Antibiotic Form, RSV (Respiratory Syncytial Virus) Infection (ED) Additional Instructions: Patient is in agreement with current treatment plan. All questions answered. Vital signs stable at time of discharge. Please return to the ER with an worsening symptoms. Follow-up with primary care provider in the next 2-3 days. Prescriptions: No Action fluticasone propionate 50 mcg/actuation spray,suspension 1 spray INTRANASAL DAILY ibuprofen 600 mg tablet 600 mg PO Q6H PRN (Reason: cramps) Qty: 30 0RF ferrous sulfate 325 mg (65 mg iron) tablet 325 mg PO DAILY Qty: 30 0RF hydrocodone-acetaminophen 5-325 mg tablet 1 - 2 tablet PO Q6H PRN (Reason: pain) Qty: 30 0RF Follow-up/Referrals: Gilberto Bower MD [Primary Care Provider] - Time of Disposition: 12:05
[2024-07-07 11:47] LABS: Influenza A QL RT-PCR Negative (Negative); Influenza B QL RT-PCR Negative (Negative); RSV RNA, RT-PCR Positive (Negative); SARS-CoV-2 RNA PCR Negative (Negative)
[2024-07-07 12:08] VITALS: BP 121/67; PULSE 87; RESP 16; TEMP 37.1; O2SAT 97
== END 2024-07-07 12:11 | disposition home or self-care (01) ==
PROVIDERS: Emergency Provider Registered Nurse; PCP Emergency Medicine
DX: J06.9 Acute upper respiratory infection, unspecified (principal); B97.4 Respiratory syncytial virus as the cause of diseases classified elsewhere; Z20.822 Contact with and (suspected) exposure to COVID-19
CPT/HCPCS: 71046; 87637; 99283